=== PATIENT | male | born 1935 | race Caucasian/White ===

== ENCOUNTER → 2017-01-01 | Outpatient (CLI) | payer BC ==
[2017-01-01 12:56] LABS: ALT/SGPT 23 U/L (12-78); AST/SGOT 15 U/L (15-37); BLOOD UREA NITROGEN 21 mg/dl (7-18); BUN/CREATININE RATIO 17.8 (10-20); CALCIUM 9.2 mg/dl (8.5-10.1); CARBON DIOXIDE 30 mmol/L (21-32); CHLORIDE 107 mmol/L (98-107); CHOLESTEROL 127 mg/dl (0-200); GLUCOSE 120 mg/dl (70-99); POTASSIUM 3.8 mmol/L (3.5-5.1); SODIUM 143 mmol/L (136-145); TRIGLYCERIDES 153 mg/dl (0-150); VERY LOW DENSITY LIPOPROT CALC 31 mg/dl
[2017-01-01 12:58] LABS: BASO % 0.6 %; BASO ABS # 0.03 K/uL (0-0.2); COMPLETE YES; HEMATOCRIT 39.1 % (42-52); IG% 0.2 %; LYMPH ABS # 1.51 K/uL (1.2-3.4); MEAN CELL VOLUME 88.9 fL (80-100); MEAN CORPUSCULAR HEMOGLOBIN 31.4 pg (25-34); MEAN CORPUSCULAR HGB CONC 35.3 g/dl (32-36); MEAN PLATELET VOLUME 11.4 fL (7.4-10.4); NEUT % 58.2 %; PLATELET COUNT 160 K/uL (130-400)
[2017-01-01 13:05] LABS: ALKALINE PHOSPHATASE 51 U/L (45-117); CHOLESTEROL/HDL RATIO 2.8; HDL CHOLESTEROL 45 mg/dl; LDL CHOLESTEROL CALCULATED 51 mg/dl
== END | disposition home or self-care (01) ==
LOC: C.LABMFLN 07:32
PROVIDERS: ATTEND Family Medicine
DX: R42 Dizziness and giddiness (principal); E78.5 Hyperlipidemia, unspecified; E03.9 Hypothyroidism, unspecified

== ENCOUNTER → 2017-01-14 | Outpatient (CLI) | payer BC ==
[~2017-01-14] MED LIST: GADAVIST IV PRN
--- NOTE | 2017-01-14 15:44 | DIAGNOSTIC IMAGING REPORT ---
MR ANGIOGRAM OF THE NECK COMBO CLINICAL HISTORY: Diplopia. Vertigo. COMPARISON STUDY: No priors. TECHNIQUE: Axial 2-D [id number] MR angiography of the neck is performed. Subsequently, following the IV administration of 8 cc of Gadavist coronal MR angiogram of the neck was performed to corroborate the findings. 3-D reformats are created and assessed. All measurements were calculated based on NASCET criteria. FINDINGS: Visualized portions of the thoracic aorta are normal in caliber. The thoracic aorta demonstrates standard 3-vessel arch anatomy. The right common carotid artery is widely patent. There is approximately 50% stenosis at the origin of the right internal carotid artery. The remainder of the right internal carotid artery is widely patent, as is the right external carotid artery. The left common carotid artery is widely patent, as are the left internal and external carotid arteries. The subclavian arteries are widely patent bilaterally. The vertebral arteries are widely patent bilaterally noting left-sided dominance. The partially visualized intracranial vessels are clear. IMPRESSION: 1. There is approximately 50% stenosis at the origin of the right internal carotid artery. 2. Otherwise unremarkable MR angiogram the neck. See above. Electronically signed by: Unruly Galarza M.D. 01/14/2017 3:42 PM Dictated Date/Time: 01/14/2017 3:38 PM
--- NOTE | 2017-01-14 16:02 | DIAGNOSTIC IMAGING REPORT ---
Brain MRI WITH AND WITHOUT CONTRAST HISTORY: R42 [id number] Vertebrobasilar [id number] TECHNIQUE: Multiplanar multisequence MRI of the brain was performed both before and after the intravenous administration of contrast. COMPARISON STUDY: None. FINDINGS: There is no mass, hematoma, midline shift, or acute infarct. The paranasal sinuses are clear. The mastoid air cells are clear. The ventricles and sulci demonstrate mild age-related involutional changes. Scattered foci of T2 hyperintensity seen within the periventricular and subcortical white matter are nonspecific but suggestive of mild microvascular ischemic changes. The major vascular flow voids at the skull base are well-maintained. No abnormal enhancement. IMPRESSION: No acute intracranial abnormality. Scattered foci of T2 hyperintensity seen within the periventricular and subcortical white matter are nonspecific but favor microvascular ischemic change. Electronically signed by: Ralph Worthy M.D. 01/14/2017 4:00 PM Dictated Date/Time: 01/14/2017 3:54 PM
== END | disposition home or self-care (01) ==
LOC: C.MRI 13:00
PROVIDERS: ATTEND Family Medicine
DX: G45.0 Vertebro-basilar artery syndrome (principal); R42 Dizziness and giddiness

== ENCOUNTER → 2018-02-24 | Outpatient (CLI) | payer BC ==
[2018-02-24 13:53] LABS: URIC ACID 5.8 mg/dl (2.6-7.2)
== END | disposition home or self-care (01) ==
LOC: C.LABMFLN 10:16
PROVIDERS: ATTEND Family Medicine
DX: E03.9 Hypothyroidism, unspecified (principal); M10.9 Gout, unspecified

== ENCOUNTER 2023-07-22 05:32 | Observation (INO) ==
--- NOTE | 2023-07-02 12:00 | PAT Medication Instructions ---
Medication Instructions Date of Service July 02, 2023 Home Medications Medication Instructions Recorded meclizine 12.5 mg tablet 12.5 mg PO TID PRN dizziness #90 06/14/19 tabs terazosin 2 mg capsule 2 mg PO BID #180 caps 02/01/23 Medication List: aspirin 81 mg tablet,delayed release 81 mg PO QAM meclizine 12.5 mg tablet 12.5 mg PO TID PRN dizziness omega 4-drn-vzw-fish oil 1,200 mg (144 mg-216 mg) capsule 1 cap PO BID finasteride 5 mg tablet 5 mg PO PM terazosin 2 mg capsule 2 mg PO BID collagen 1 dose PO QAM omeprazole 20 mg capsule,delayed release 20 mg PO DAILY PRN Heartburn allopurinol 100 mg tablet 100 mg PO QAM atorvastatin 40 mg tablet 40 mg PO QAM cholecalciferol (vitamin D3) 50 mcg (2,000 unit) capsule 50 mcg PO QAM docusate sodium 100 mg capsule (Colace) 300 mg PO QAM levothyroxine 50 mcg tablet 50 mcg PO QAM ropinirole 0.25 mg tablet 0.25 mg PO PM triamterene 75 mg-hydrochlorothiazide 50 mg tablet 0.25 tab PO QAM MEDICATION INSTRUCTIONS: ASK your prescriber and surgeon aspirin 81 mg tablet,delayed release 81 mg PO QAM STOP taking 2 weeks before surgery omega 5-zix-dgt-fish oil 1,200 mg (144 mg-216 mg) capsule 1 cap PO BID DO NOT take the morning of surgery cholecalciferol (vitamin D3) 50 mcg (2,000 unit) capsule 50 mcg PO QAM triamterene 75 mg-hydrochlorothiazide 50 mg tablet 0.25 tab PO QAM docusate sodium 100 mg capsule (Colace) 300 mg PO QAM collagen 1 dose PO QAM Take morning of surgery With a small sip of water, OTHERWISE NOTHING TO EAT OR DRINK AFTER MIDNIGHT: omeprazole 20 mg capsule,delayed release 20 mg PO DAILY PRN Heartburn allopurinol 100 mg tablet 100 mg PO QAM atorvastatin 40 mg tablet 40 mg PO QAM levothyroxine 50 mcg tablet 50 mcg PO QAM meclizine 12.5 mg tablet 12.5 mg PO TID PRN dizziness terazosin 2 mg capsule 2 mg PO BID Take evening before surgery finasteride 5 mg tablet 5 mg PO PM meclizine 12.5 mg tablet 12.5 mg PO TID PRN dizziness terazosin 2 mg capsule 2 mg PO BID ropinirole 0.25 mg tablet 0.25 mg PO PM Other Notes If you have any questions please call us at [phone] or [phone] or [phone] or [phone]
--- NOTE | 2023-07-05 08:52 | Anesthesiology Consultation ---
Date of Service July 05, 2023 Assessment & Plan (1) Pre-op evaluation: - awaiting [place] PCP response to workload note for final clearance. - PCP pre-operative evaluation 06/21/23 [place]: "...his ekg was done and was normal. he is to have his cxr for pre op. his lab work was ordered for surgery. he is to keep his appts with his other physicians. he will be cleared when his lab work and cxr are done..." - Outpatient joint assessment: Patient is currently scheduled for inpatient pathway. If re-evaluated and patient/surgeon requests outpatient pathway, patient is not recommended candidate for outpatient joint program from anesthesia standpoint. Chart Review Chart Review: Pending: Refer to Additional Notes / Consult section and Patient seen in Pre Admission Testing Teaching & Discussion Pre-Anesthesia Teaching/Discussion Notes: Instructed NPO after midnight before surgery, except medications with 15 cc of water. Medication instructions provided according to the PAT guidelines. History Surgery Operation Date: 07/22/23 09:55 Proposed Procedures p Left Total Knee Arthroplasty - Chance Johns MD Height/Weight Height: 6 ft Weight: 82.4 kg Allergies Allergy/AdvReac Type Severity Reaction Status Date / Time methotrexate Allergy Intermediate Rash Verified 06/28/23 09:04 HARISH Inhibitors Allergy Mild Cough Verified 06/28/23 09:04 Medications Home Medications Medication Instructions Recorded Confirmed Last Taken aspirin 81 mg tablet,delayed 81 mg PO QAM #30 tabs 06/14/19 06/28/23 Unknown release meclizine 12.5 mg tablet 12.5 mg PO TID PRN dizziness #90 06/14/19 06/28/23 Unknown tabs omega 7-sfd-eks-fish oil 1,200 mg 1 cap PO BID 06/14/19 06/28/23 Unknown (144 mg-216 mg) capsule finasteride 5 mg tablet 5 mg PO PM 08/16/22 06/28/23 Unknown terazosin 2 mg capsule 2 mg PO BID #180 caps 02/01/23 06/28/23 Unknown collagen 1 dose PO QAM 02/15/23 06/28/23 Unknown omeprazole 20 mg capsule,delayed 20 mg PO DAILY PRN Heartburn 06/21/23 06/28/23 Unknown release allopurinol 100 mg tablet 100 mg PO QAM 06/28/23 06/28/23 Unknown atorvastatin 40 mg tablet 40 mg PO QAM 06/28/23 06/28/23 Unknown cholecalciferol (vitamin D3) 50 50 mcg PO QAM 06/28/23 06/28/23 Unknown mcg (2,000 unit) capsule docusate sodium 100 mg capsule 300 mg PO QAM 06/28/23 06/28/23 Unknown (Colace) levothyroxine 50 mcg tablet 50 mcg PO QAM 06/28/23 06/28/23 Unknown ropinirole 0.25 mg tablet 0.25 mg PO PM 06/28/23 06/28/23 Unknown triamterene 75 0.25 tab PO QAM 06/28/23 06/28/23 Unknown mg-hydrochlorothiazide 50 mg tablet melatonin 5 mg tablet 5 mg PO HS 07/05/23 07/05/23 Unknown Past Medical History Medical History (Updated 07/05/23 @ 08:57 by Charline Manley PA-C) Allergic rhinitis Diverticular disease Remote diverticulitis (?2020) Elevated PSA GERD (gastroesophageal reflux disease) controlled, stable per pt Gout last episode > 1 month ago Gynecomastia H/O adenomatous polyp of colon History of COVID-2021 > not hospitalized Hyperlipidemia Hypertension controlled, stable per pt Hypothyroidism Lump of breast, right Benign per pt-right chest wall tenderness, PCP aware and monitoring, denies change or worsening Migraine Hx 20 years ago Restless leg syndrome Rheumatoid arthritis Stenosis of right carotid artery without infarction Carotid duplex (12/25/21): B/L ICA stenosis <50% stenosis; denies dizziness, lightheadedness, presyncope, visual changes Stomach ulcer Hx, "resolved" Urinary frequency Nighttime, seeing PCP at present for this per pt Vertigo controlled, stable per pt, denies needing meclizine > 1 yr ago Patient denies h/o stroke, seizures, heart attack, heart failure, DM, DVTs or blood transfusions. Exercise / Class Metabolic Activity II 4-5 Yardwork/Stairs/Walk up hill (denies chest discomfort or shortness of breath with 1 FOS) Past Family History Family History Aunt Ovarian cancer Uncle Brain cancer Father Myocardial infarction Stroke Denies family history of Prostate cancer Breast cancer Colorectal cancer Past Surgical History Surgical History (Updated 07/03/23 @ 11:53 by Leticia Perkins) H/O colonoscopy History of subtotal thyroidectomy History of tooth extraction S/P appendectomy S/P carpal tunnel release right S/P inguinal hernia repair Past Anesthesia History No Hx of Anesthesia Complications and No Family Hx of Anesthesia Complications History of PONV No Hx of PONV and Hx of Motion Sickness Social History Smoking Status: Former smoker tobacco type: cigarettes and pipe Do You Dip or Chew Tobacco: No Smoking End Date: 50 yrs ago Hx Alcohol Use: Yes Alcohol type: beer and wine alcohol intake frequency: a few times a month Hx Substance Use: No substance use type: does not use Review of Systems Snoring, denies witnessed apneas. Patient denies chest pain, shortness of breath, dyspnea on exertion, fever, chills, cough, wheezing, or palpitations. Physical Exam Vital Signs Vitals BP 129/77 P 68 TEMP 98.1 SP02 97% on RA RESP 17 Physical Patient resting comfortably in chair in no acute distress, alert and oriented, responding appropriately throughout visit Full cervical extension range of motion without pain TMD 3.5 finger breadths Mallampati Score 2 Dentition: partial upper plate, denies chipped or loose teeth, caps/crowns, implants or bridges Lungs: normal respiratory effort. Good air movement, clear throughout to auscultation, no adventitious breath sounds Cardiac: regular rate and rhythm, no murmurs noted Carotid arteries: negative bruit bilat Lab Results Anesthesia Preop Results Results Anesthesia Widget: WBC 4.94 K/ul (4.8-10.8) 06/27/23 Hgb 13.4 g/dl (14.0-18.0) L 06/27/23 Hct 38.6 % (42.0-52.0) L 06/27/23 Plt 177 K/uL (130-400) 06/27/23 Na 137 mmol/L (136-145) 06/27/23 K 3.8 mmol/L (3.5-5.1) 06/27/23 Cl 102 mmol/L (98-107) 06/27/23 CO2 29 mmol/L (21-32) 06/27/23 BUN 21 mg/dl (6-23) 06/27/23 Creat 1.20 mg/dl (0.6-1.4) 06/27/23 Glucose Level 141 mg/dl (70-99(Fasting)) H 06/27/23 PT 11.1 Seconds (9.0-12.0) 06/27/23 PTT 28.2 Seconds (21.0-31.0) 06/27/23 INR 1.0 (0.9-1.1) 06/27/23 TSH 4.044 uIu/ml (0.300-4.500) 06/27/23 Urine Color Yellow 06/27/23 Urine Appearance Clear (Clear) 06/27/23 Urine pH 6.5 (4.5-7.5) 06/27/23 Urine Specific [place] 1.017 (1.000-1.030) 06/27/23 Urine Protein Negative (Negative) 06/27/23 Urine Glucose (UA) Negative (Negative) 06/27/23 Urine Ketones Negative (Negative) 06/27/23 Urine Blood Negative (Negative) 06/27/23 Urine Nitrite Negative (Negative) 06/27/23 Urine Bilirubin Negative (Negative) 06/27/23 Urine Urobilinogen Negative (Negative) 06/27/23 Urine Leukocyte Esterase Negative (Negative) 06/27/23 Blood Type A Negative 07/05/23 Antibody Screen NEGATIVE 07/05/23 Testing Electrocardiogram Date: 06/21/23 Sinus rhythm, rate 73 bpm Chest X-Ray Date: 06/21/23 No evidence of acute cardiopulmonary disease Cervical Spine Date: 07/05/23 x-ray Degenerative changes without evidence of acute abnormality Other Testing Carotid doppler 12/25/21 < 50% stenosis ICAs bilat
--- NOTE | 2023-07-21 19:01 | History & Physical Report ---
Date of Service July 21, 2023 Assessment & Plan (1) Primary osteoarthritis of left knee: Plan: Treatment options discussed with the patient. He has failed conservative measures and would like to proceed with surgical invention. Risks, benefits and alternatives to surgery including but not limited to infection, DVT, pain, stiffness, need for revision surgery, damage to blood vessels, damage to nerves, PE, , were discussed with the patient and they wish to proceed. Plan for left total knee arthroplasty scheduled for [facility] on July [address] Johns. Plan on aspirin 81 mg twice daily for 1 month postop for DVT prophylaxis. Plan on inpatient rehab postoperatively. All questions answered. Patient follow-up postop. History of Present Illness Chief Complaint: Left knee pain Primary Care Provider: Maksim Vee DO 87-year-old male with past medical history significant for hypertension, high cholesterol diverticular disease, hypothyroidism, migraine, RA, who presents with ongoing left knee pain. He has failed conservative measures including steroid injections. He has pain interfering with his daily activities and would like to proceed with surgical invention. Patient denies headaches, sweats, fevers, chills, double vision, blurred vision, cough, sore throat, dysphagia, chest pain, sob, wheezing, n/v/d/c, numbness, tingling, fatigue, urinary symptoms, mood disorders. ROS positive for left knee pain and stiffness. Allergies Allergy/AdvReac Type Severity Reaction Status Date / Time methotrexate Allergy Intermediate Rash Verified 06/28/23 09:04 HARISH Inhibitors Allergy Mild Cough Verified 06/28/23 09:04 Home Medications Medication Instructions Recorded Confirmed Type aspirin 81 mg tablet,delayed 81 mg PO QAM #30 tabs 06/14/19 06/28/23 History release meclizine 12.5 mg tablet 12.5 mg PO TID PRN dizziness #90 06/14/19 06/28/23 Rx tabs omega 8-lxl-kly-fish oil 1,200 mg 1 cap PO BID 06/14/19 06/28/23 History (144 mg-216 mg) capsule finasteride 5 mg tablet 5 mg PO PM 08/16/22 06/28/23 History terazosin 2 mg capsule 2 mg PO BID #180 caps 02/01/23 06/28/23 Rx collagen 1 dose PO QAM 02/15/23 06/28/23 History omeprazole 20 mg capsule,delayed 20 mg PO DAILY PRN Heartburn 06/21/23 06/28/23 History release allopurinol 100 mg tablet 100 mg PO QAM 06/28/23 06/28/23 History atorvastatin 40 mg tablet 40 mg PO QAM 06/28/23 06/28/23 History cholecalciferol (vitamin D3) 50 50 mcg PO QAM 06/28/23 06/28/23 History mcg (2,000 unit) capsule docusate sodium 100 mg capsule 300 mg PO QAM 06/28/23 06/28/23 History (Colace) levothyroxine 50 mcg tablet 50 mcg PO QAM 06/28/23 06/28/23 History ropinirole 0.25 mg tablet 0.25 mg PO PM 06/28/23 06/28/23 History triamterene 75 0.25 tab PO QAM 06/28/23 06/28/23 History mg-hydrochlorothiazide 50 mg tablet melatonin 5 mg tablet 5 mg PO HS 07/05/23 07/05/23 History Past Med/Surg History Medical History (Updated 07/21/23 @ 19:00 by Juanpablo Herbert PA-C) Allergic rhinitis Diverticular disease Remote diverticulitis (?2020) Elevated PSA GERD (gastroesophageal reflux disease) controlled, stable per pt Gout last episode > 1 month ago Gynecomastia H/O adenomatous polyp of colon History of COVID-2021 > not hospitalized Hyperlipidemia Hypertension controlled, stable per pt Hypothyroidism Lump of breast, right Benign per pt-right chest wall tenderness, PCP aware and monitoring, denies change or worsening Migraine Hx 20 years ago Restless leg syndrome Rheumatoid arthritis Stenosis of right carotid artery without infarction Carotid duplex (12/25/21): B/L ICA stenosis <50% stenosis; denies dizziness, lightheadedness, presyncope, visual changes Stomach ulcer Hx, "resolved" Urinary frequency Nighttime, seeing PCP at present for this per pt Vertigo controlled, stable per pt, denies needing meclizine > 1 yr ago Surgical History (Updated 07/03/23 @ 11:53 by Leticia Perkins) H/O colonoscopy History of subtotal thyroidectomy History of tooth extraction S/P appendectomy S/P carpal tunnel release right S/P inguinal hernia repair Family History Aunt Ovarian cancer Uncle Brain cancer Father Myocardial infarction Stroke Denies family history of Prostate cancer Breast cancer Colorectal cancer Social History Smoking Status: Former smoker Age Started Using Tobacco: 20; Age Quit Using Tobacco: 32; packs per day: 0.5; Smoking End Date: 50 yrs ago; Second Hand Exposure: No; Do You Dip or Chew Tobacco: No; Tobacco Cessation Education Requested by Patient: No Hx Alcohol Use: Yes Alcohol type: beer and wine Hx Substance Use: No Preferred Language: [place] Communication Ability: Effective Visual Impairment: Partially Limited Hearing Ability: Use of Hearing Aid Logging Contractor Required: No Beliefs That Will Affect Care: None marital status: Current Living Situation: Spouse current occupational status: retired Other Information That Helps Us Care for You: No Feels Safe at Home: Yes Safety Concerns: Feels Safe At This Time Childhood Exposure to Second-Hand Smoke: No Diet Comment: seeds/nuts caffeine: Yes (coffee/iced tea) Dental Care, Regularly: Yes Physical Activity Frequency: Daily Physical Activity Frequency Comment: yard work/walk dog Seatbelt Use: always Sunscreen Use: No Do you think of yourself as: straight/heterosexual Assistive Devices: Cane, Denture - Upper, Glasses and Hearing Aid - Bilateral Review of Systems All systems reviewed & are unremarkable except as noted in HPI & below Physical Exam Constitutional: well developed and well nourished; no acute distress Eyes: PERRL, conjunctivae normal, anicteric sclerae ENMT: external ear and nose normal, oropharynx normal Neck: trachea midline, no thyromegaly Respiratory: normal respiratory effort, lungs clear to auscultation Cardiovascular: RRR, no murmur, no edema Musculoskeletal: Left knee: Tenderness medial joint line and lateral patellar facet. Mild effusion. Moderate crepitation. Range of motion 10 to 125 degrees. Stable to valgus and varus stress test. Skin: no rashes, warm and dry Neurologic: patellar DTR's 2+ bilat, sensation intact Psychiatric: A+Ox3, euthymic affect Results & Data Diagnostic Findings Left knee radiographs demonstrate tricompartmental arthritic changes. Patient with significant joint space narrowing medial compartment. [id number] patellofemoral compartment. There is periarticular osteophytes.
[2023-07-22] MEDS ORDERED: LR 500ML BOLUS, THEN 15ML/HR IV SCH (06:00)
[2023-07-22] MEDS ORDERED: LR 60ML/HR IV SCH (06:00)
[2023-07-22] MEDS ORDERED: TRANEXAMIC ACID 1,000 MG **IV Intra-op IV SCH (06:00)
[2023-07-22] MEDS ORDERED: dexAMETHasone 4 MG TAB PO SCH (06:00)
[2023-07-22] MEDS ORDERED: METOCLOPRAMIDE HCL 10 MG TABLET PO SCH (06:00)
[2023-07-22] MEDS ORDERED: CeleBREX 200 MG CAP PO SCH ×2 (06:00→21:00)
[2023-07-22] MEDS ORDERED: TRANEXAMIC ACID 1,000 MG **IV Pre-op IV SCH (06:00)
[2023-07-22] MEDS ORDERED: ceFAZolin 2000MG 2,000 MG/15 ML SYR IV SCH (06:00)
[2023-07-22] MEDS ORDERED: GABAPENTIN 300 MG CAP PO SCH (06:00)
[2023-07-22] MEDS ORDERED: ACETAMINOPHEN 500 MG TAB PO SCH (06:00)
[2023-07-22] MEDS ORDERED: FAMOTIDINE 20 MG TAB PO SCH (06:00)
[2023-07-22] MEDS ORDERED: ROPIVACAINE 0.5% HCL/PF 150 MG, BUPIVACAINE 0.75% MPF 20 ML, EPINEPHrine 30MG/30ML (OR ... INSTIL SCH (06:00)
[2023-07-22] MEDS ORDERED: fentaNYL citrate PF 100 MCG/2 ML VIAL IV PRN (06:28)
[2023-07-22] MEDS ORDERED: ePHEDrine sulfate 50 MG/ML AMP IV PRN (06:28)
[2023-07-22] MEDS ORDERED: ATROPINE SULFATE 0.1 MG/ML 10ML SYR IV PRN (06:28)
[2023-07-22] MEDS ORDERED: ONDANSETRON INJ 2 MG/ML 2 ML VIAL IV PRN ×2 (06:28→12:09)
[2023-07-22] MEDS ORDERED: BUPIVACAINE 0.5 % 5 MG/1 ML PF 10ML VIAL ONE (06:35)
[2023-07-22] MEDS ORDERED: BUPIVACAINE 0.25% PF 30 ML VIAL ONE (06:36)
[2023-07-22] MEDS ORDERED: PROPOFOL IV EMULSION 10 MG/ML 20 ML VIAL IV ONE ×3 (06:47→09:10)
[2023-07-22] MEDS ORDERED: MIDAZOLAM HCL 1 MG/ML 2ML VIAL ONE (06:47)
[2023-07-22] MEDS ORDERED: LIDOCAINE 2% 2 ML VIAL/AMP(20MG/ML) INFIL ONE (06:47)
[2023-07-22] MEDS ORDERED: fentaNYL citrate PF 100 MCG/2 ML VIAL ONE (06:48)
[2023-07-22] MEDS ORDERED: ORTHO JOINT ANESTHETIC ONE (06:56)
--- NOTE | 2023-07-22 07:14 | History & Physical Bridge Note ---
Date of Service July 22, 2023 History & Physical Bridge Note I have examined the patient, reviewed the History & Physical and in the interval since the performance of the History & Physical I have noted the following changes of clinical significance: no changes noted
[2023-07-22] MEDS ORDERED: ONDANSETRON INJ 2 MG/ML 2 ML VIAL ONE (07:44)
[2023-07-22] MEDS ORDERED: DEXAMETHASONE SOD INJ 4 MG/ML VIAL ONE (07:44)
--- NOTE | 2023-07-22 09:09 | Operative Report ---
Post Operative Report Pre & Post Diagnosis Operation Date: 07/22/23 07:15 Pre-Op Diagnosis: Primary osteoarthritis of left knee Post-Op Diagnosis: Primary osteoarthritis of left knee I identified the patient and participated in the time-out.: Yes Procedure Operation Date: 07/22/23 07:15 Actual Procedures p Left Total Knee Arthroplasty(Left), Lela Acticoat superficial wound VAC- Chance Johns MD Surgeon Chance Johns MD Fitter Hand Juanpablo SINGH Estimated Blood Loss 5 Findings Consistent with Post-Op Diagnosis Specimens bone cuts Drains 2 Hemovac Anesthesia Type MAC Spinal Regional Complications none Disposition Disposition: Recovery Room Indications 87-year-old male with chronic osteoarthritis left knee failed conservative management. Patient is [id number] patellofemoral joint and close to gkjr-[id number] medial compartment. Description of Procedure Patient was taken to the operating room placed supine on the operating table and anesthetized under Spinal MAC regional block anesthesia. Exam under anesthesia demonstrated tall individual with thin leg and no effusion no instability full range of motion substantial crepitation with range of motion. A pneumatic tourniquet was placed about the thigh of the Left lower extremity. The left lower extremity was prepped and draped in usual sterile fashion. The leg was elevated exsanguinated with an Esmarch bandage and the pneumatic tourniquet was raised to 275mm mercury. An anterior incision was made across the left knee. The skin was incised longitudinally subcutaneous flaps were elevated and an incision was made through the medial retinaculum extending up into the mid third of the quadriceps tendon and extended down to the medial tibial tubercle. Intra-articular findings demonstrated ofux-jo-scoa patellofemoral joint with eburnated bone grade 4 medial femoral condyle and grade 3 medial tibial plateau arthritis more anterior medial arthritic pattern medially. The knee was exposed by excising the infrapatellar fat pad, excising the menisci and cruciate ligaments. Any inflamed synovial tissue was resected. The fat pad over the anterior femur was resected for placement of the component in that area. The lateral synovial bands were release. The femur was exposed. The custom femoral cutting block was pinned in position. The distal femoral cutting block was applied. The distal femoral cut was made with the oscillating saw. The size 10, 4-in-1 cutting block was placed. The anterior and posterior chamfer cuts were made. The knee was extended and a subperiosteal peel lateral release was performed around the patella. The patella width was measured and width was reproduced using freehand cut technique. The 38 millimeter symmetrical patella was used. 3 drill holes are made for the pegs. The tibia was exposed. A custom tibial cutting block was positioned and drill holes were made for the cutting guide. Cutting guide was placed and the proximal cut was made with the oscillating saw. All osteophytes were resected. The lamina product promoter retail pet was used to assess ligamentous balance and the ligaments were balanced in extension and flexion. no releases were required. The tibia was reexposed and measured for a size F tibial component. This was externally rotated in line with the tibial tubercle and the fixation pins were drilled. The proximal tibia was fashioned with the drill and punch. The size10 CR femoral trial was inserted. The trial MC inserts were used. The 10 mm insert gave balanced ligaments through full range of motion. The patella tracked centrally. the trials were removed. The orthomix anesthetic cocktail was injected per protocol. The knee was then copiously irrigated with pulsatile lavage saline solution. The final components were cemented with Refobacin bone cement. The final components were [employer] persona left 10 standard CR femoral component, left F tibial component, left 10 mm MC tibial polyethylene and a 38 mm symmetrical patella. After the cement cured with the knee in full extension the Betadine soak was used per protocol. The knee joint was copiously irrigated with pulsatile lavage saline solution . 2 drains were brought out laterally and connected to a Hemovac. The quadriceps tendon and medial retinaculum were closed with interrupted akaxsb-[id number] #1 Vicryl sutures. The knee was taken through a full range of motion which was 0 through 140 degrees and the repair was secure. The subcutaneous tissues were closed with 2-0 Vicryl sutures and skin was closed with Tylor.A Lela and Acticoat superficial wound VACwas applied and the patient tolerated the procedure well.Juanpablo SINGH my physician financial services assistant participated as group fitness assistant department head and was an integral part in all aspects of the procedure,he assisted in soft tissue retraction, instrument management ,leg positioning, the closure including application of superficial wound VAC and will participate in the postoperative care of the patient. I attest to the content of the Intraoperative Record and any orders documented therein. Any exceptions are noted below.
--- NOTE | 2023-07-22 10:09 | XRay Report ---
XR knee LT 1 or 2V routine CLINICAL HISTORY: Postoperative evaluation. COMPARISON: None FINDINGS: Alignment of the total left knee arthroplasty is anatomic. There is no periprosthetic frac ture. There are skin bry. No unexpected radiopaque foreign bodies are present. Surgical drain is in place. IMPRESSION: Expected findings following total left knee arthroplasty. ACT 112: Negative or not required by law. Electronically signed by: Cade Alford M.D. 07/22/2023 10:08 AM
--- NOTE | 2023-07-22 10:48 | Anesthesiology Progress Note ---
Date of Service July 22, 2023 Anesthesia Post Procedure Vital Signs Vital Signs: Temp Pulse Pulse Resp BP BP Pulse Ox 07/22/23 10:30 71 14 119/69 92 07/22/23 10:20 75 18 102/67 94 07/22/23 10:10 36.3 C L 67 12 118/74 93 07/22/23 10:00 73 14 128/71 93 07/22/23 09:50 72 10 L 123/71 97 07/22/23 09:43 36.2 C L 78 12 123/73 96 07/22/23 05:57 36.7 C 70 20 179/87 H 96 O2 Del Method O2 Flow Rate 07/22/23 10:30 Room Air 07/22/23 10:20 Room Air 07/22/23 10:10 Room Air 07/22/23 10:00 Room Air 07/22/23 09:50 Oxymask 4 07/22/23 09:43 Oxymask 6 07/22/23 05:57 Room Air Pain Intensity Left Knee: Pain Intensity: 5 Right Knee: Pain Intensity: 5 Transfer of Care Handoff Completed per policy Notes Mental Status: alert / awake / arousable Patient Amnestic to Procedure: Yes Nausea / Vomiting: adequately controlled Pain: adequately controlled Airway Patency, RR, SpO2: stable & adequate BP & HR: stable & adequate Hydration State: stable & adequate Neuraxial Anesthesia: was administered and sensory block is resolving Anesthetic Complications: no major complications apparent and Pt Satisfied with anesthetic care
[2023-07-22] MEDS ORDERED: MECLIZINE 12.5 MG TAB PO PRN (12:09)
[2023-07-22] MEDS ORDERED: bisacodyL 10 MG SUPP PR PRN (12:09)
[2023-07-22] MEDS ORDERED: HYDROmorphone INJ 0.5 MG/0.5 ML SYR IV PRN (12:09)
[2023-07-22] MEDS ORDERED: NALOXONE HCL 0.4 MG/1 ML VIAL/CARP IV PRN (12:09)
[2023-07-22] MEDS ORDERED: oxyCODONE HCL IR 5 MG TAB (IMMEDIATE RELEASE) PO PRN (12:09)
[2023-07-22] MEDS ORDERED: METOCLOPRAMIDE HCL INJ 5 MG/ML 2 ML VIAL IV PRN (12:09)
[2023-07-22] MEDS ORDERED: MAGNESIUM HYDROXIDE SUSP 30 ML UDC PO PRN (12:09)
[2023-07-22] MEDS ORDERED: PANTOprazole 40 MG TAB PO PRN (12:34)
[2023-07-22] MEDS: SODIUM CHLORIDE 0.9% 1,000 ML IV SCH (12:54)
[2023-07-22] MEDS: ACETAMINOPHEN 500 MG TAB PO SCH ×2 (13:22→21:15)
[2023-07-22] MEDS: ceFAZolin 2000MG 2,000 MG/15 ML SYR IV SCH (15:07)
[2023-07-22] MEDS: rOPINIRole HCL 0.25 MG TABLET PO SCH (21:14)
[2023-07-22] MEDS: TERAZOSIN HCL 1 MG CAP PO SCH (21:15)
[2023-07-22] MEDS: MELATONIN 3 MG TAB PO SCH (21:15)
[2023-07-22] MEDS: SENNA 8.6 MG TAB PO SCH (21:16)
[2023-07-22] MEDS: ASPIRIN 81 MG ECTAB PO SCH (21:16)
[2023-07-22] MEDS: FINASTERIDE 5 MG TAB PO SCH (21:16)
[2023-07-23] MEDS: SODIUM CHLORIDE 0.9% 1,000 ML IV SCH (00:26)
[2023-07-23] MEDS: ceFAZolin 2000MG 2,000 MG/15 ML SYR IV SCH (00:29)
[2023-07-23] MEDS ORDERED: POTASSIUM CHLORIDE CRTAB 20 MEQ TABCR PO ONE (00:43)
[2023-07-23] MEDS ORDERED: CYCLOBENZAPRINE HCL 5 MG TAB PO PRN ×2 (00:44→16:31)
[2023-07-23] MEDS ORDERED: SODIUM CHLORIDE 0.9% 1,000 ML IV SCH (00:45)
[2023-07-23] MEDS: ACETAMINOPHEN 500 MG TAB PO SCH ×3 (05:39→21:57)
[2023-07-23] MEDS: LEVOTHYROXINE SODIUM 50 MCG TABLET PO SCH (05:39)
[2023-07-23 06:42] LABS: Hematocrit (blood only) 34.6 % (42.0-52.0); Hemoglobin 12.4 g/dl (14.0-18.0); Mean Corpuscular Hemoglobin 31.9 pg (25.0-34.0); Mean Corpuscular Hgb Conc 35.8 g/dL (32.0-36.0); Mean Corpuscular Volume 88.9 fL (80.0-100.0); Mean Platelet Volume 10.7 fL (9.4-12.4); Platelet Count 174 K/uL (130-400); RDW Coefficient of Variation 12.2 % (11.5-14.5); RDW Standard Deviation 39.6 fL (36.4-46.3); Red Blood Count 3.89 M/uL (4.70-6.10); White Blood Count 13.85 K/ul (4.8-10.8)
[2023-07-23 07:06] LABS: BUN Creatinine Ratio 28.5 (10-20); Calcium 9.3 mg/dl (8.6-10.3); Creatinine Clr Calc Pharmacy 41.2 ml/min; Potassium 3.7 mmol/L (3.5-5.1)
[2023-07-23] MEDS: MULTIVITAMIN TAB PO SCH (08:04)
[2023-07-23] MEDS: DOCUSATE SODIUM 100 MG CAP PO SCH (08:04)
[2023-07-23] MEDS: CHOLECALCIFEROL 1,000 UNITS 25 MCG TAB PO SCH (08:04)
[2023-07-23] MEDS: ATORVASTATIN 40 MG TAB PO SCH (08:04)
[2023-07-23] MEDS: allopurinoL 100 MG TAB PO SCH (08:04)
[2023-07-23] MEDS: TERAZOSIN HCL 1 MG CAP PO SCH ×2 (08:04→20:39)
[2023-07-23] MEDS: TRIAMTERENE/HCTZ 37.5/25MG TAB PO SCH (08:04)
[2023-07-23] MEDS: ASPIRIN 81 MG ECTAB PO SCH ×2 (08:05→20:40)
--- NOTE | 2023-07-23 08:19 | Orthopedic Progress Note ---
Date of Service July 23, 2023 Assessment & Plan (1) Primary osteoarthritis of left knee: Plan: Postop day #1 left total knee arthroplasty -PT/OT -Pain management as written -DVT prophylaxis: SCDs, teds, aspirin 81 mg twice daily -AM labs: Hemoglobin 12.4 from 13.4 preop acute blood loss anemia due to surgical loss versus dilutional. Mild leukocytosis likely due to surgical stress versus perioperative steroids. Patient is asymptomatic. Mildly elevated creatinine at 1.44 from 1.2 on preop labs. We will hold Celebrex for now. -Discharge planning: Plan on discharge to [facility] pending insurance authorization and PT/OT evals. Patient likely will require 3 midnight stay due to his insurance. Admission and Anticipated Discharge Date Admission Date: July 22, 2023 Subjective Patient is postop day 1 left knee. He is feeling well this morning. Not currently having any pain. Overnight he was having some thigh pain and some spasms likely due to the tourniquet use during surgery. This is improved. No other complaints. Denies chest pain, shortness of breath, nausea/vomiting/diarrhea, headaches or dizziness. Review of Systems Review of Systems: All systems reviewed & are unremarkable except as noted in Subjective Physical Exam Physical Exam: Left knee: Dressing is clean, dry, intact. Hemovac on suction. Toes are mobile with good dorsiflexion. No calf tenderness. Able to do a straight leg raise. Distally neurovascular status and sensation is grossly intact. Constitutional: WD/WN, vitals as above Results & Data Vital Signs (Past 12 Hours) Vital Signs Temp Pulse Pulse Resp BP Pulse Ox O2 Del Method 07/23/23 08:00 36.4 C L 64 16 159/78 H 96 Room Air 07/23/23 03:37 36.6 C 60 18 151/77 H 96 Room Air 07/22/23 23:25 36.7 C 62 18 150/72 H 97 Room Air Laboratory Results Lab Results 07/23/23 07/23/23 Range/Units 05:47 05:47 WBC 13.85 H (4.8-10.8) K/ul RBC 3.89 L (4.70-6.10) M/uL Hgb 12.4 L (14.0-18.0) g/dl Hct 34.6 L (42.0-52.0) % MCV 88.9 (80.0-100.0) fL MCH 31.9 (25.0-34.0) pg MCHC 35.8 (32.0-36.0) g/dL RDW Std Deviation 39.6 (36.4-46.3) fL RDW Coeff of [place] 12.2 (11.5-14.5) % Plt Count 174 (130-400) K/uL MPV 10.7 (9.4-12.4) fL Sodium 138 (136-145) mmol/L Potassium 3.7 (3.5-5.1) mmol/L Chloride 106 (98-107) mmol/L Carbon Dioxide 24 (21-32) mmol/L Anion Gap 8 (3-11) BUN 41 H (6-23) mg/dl Creatinine 1.44 H (0.6-1.4) mg/dl Est Cr Clr Drug Dosing 41.2 ml/min Est GFR ( Amer) 51.0 ml/min Est GFR (Non-Af Amer) 44.0 ml/min BUN/Creatinine Ratio 28.5 H (10-20) Glucose 115 H (70-99(Fasting)) mg/dl Calcium 9.3 (8.6-10.3) mg/dl
[2023-07-23] MEDS: MELATONIN 3 MG TAB PO SCH (20:40)
[2023-07-23] MEDS: SENNA 8.6 MG TAB PO SCH (20:40)
[2023-07-23] MEDS: rOPINIRole HCL 0.25 MG TABLET PO SCH (20:40)
[2023-07-23] MEDS: FINASTERIDE 5 MG TAB PO SCH (20:40)
[2023-07-24] MEDS: ACETAMINOPHEN 500 MG TAB PO SCH (05:37)
[2023-07-24] MEDS: LEVOTHYROXINE SODIUM 50 MCG TABLET PO SCH (05:37)
--- NOTE | 2023-07-24 07:29 | Orthopedic Progress Note ---
Date of Service July 24, 2023 Assessment & Plan (1) Primary osteoarthritis of left knee: Plan: Postop day #2 left total knee arthroplasty -PT/OT -Pain management as written -DVT prophylaxis: SCDs, teds, aspirin 81 mg twice daily -Discharge planning: Plan on discharge to [facility]. Plan on discharge today Admission and Anticipated Discharge Date Admission Date: July 22, 2023 Subjective Patient is postop day 2 left knee. He is feeling well this morning. Minimal pain. No other complaints. Denies chest pain, shortness of breath, nausea/vomiting/diarrhea, headaches or dizziness. Review of Systems Review of Systems: All systems reviewed & are unremarkable except as noted in Subjective Physical Exam Physical Exam: Left knee: Dressing is clean, dry, intact. Hemovac on suction. Toes are mobile with good dorsiflexion. No calf tenderness. Able to do a straight leg raise. Distally neurovascular status and sensation is grossly intact. Results & Data Vital Signs (Past 12 Hours) Vital Signs Temp Pulse Resp BP Pulse Ox O2 Del Method 07/23/23 23:16 36.8 C 62 18 167/83 H 94 Room Air
[2023-07-24] MEDS: DOCUSATE SODIUM 100 MG CAP PO SCH (08:20)
[2023-07-24] MEDS: allopurinoL 100 MG TAB PO SCH (08:20)
[2023-07-24] MEDS: TERAZOSIN HCL 1 MG CAP PO SCH (08:20)
[2023-07-24] MEDS: TRIAMTERENE/HCTZ 37.5/25MG TAB PO SCH (08:20)
[2023-07-24] MEDS: MULTIVITAMIN TAB PO SCH (08:20)
[2023-07-24] MEDS: ASPIRIN 81 MG ECTAB PO SCH (08:20)
[2023-07-24] MEDS: ATORVASTATIN 40 MG TAB PO SCH (08:21)
[2023-07-24] MEDS: CHOLECALCIFEROL 1,000 UNITS 25 MCG TAB PO SCH (08:21)
--- NOTE | 2023-07-24 12:04 | Communication Note ---
Date of Service: July 24, 2023 Mr. Reynolds is an 87-year-old with a history of hypertension hyperlipidemia hypothyroidism and rheumatoid arthritis who is postoperative day 2 from a left TKA. [facility] by the [facility]opedics team. I personally reviewed his chart including medical history, vital signs, labs, studies, Home and discharge medications. He will be taking low-dose aspirin twice a day for DVT prophylaxis and otherwise resume his home medications. I have no further recommendations, thank you for the consultation.
--- NOTE | 2023-07-25 08:21 | Discharge Summary ---
Date of Service July 25, 2023 Admission HPI Per Admitting Provider 87-year-old male with past medical history significant for hypertension, high cholesterol diverticular disease, hypothyroidism, migraine, RA, who presents with ongoing left knee pain. He has failed conservative measures including steroid injections. He has pain interfering with his daily activities and would like to proceed with surgical invention. Patient denies headaches, sweats, fevers, chills, double vision, blurred vision, cough, sore throat, dysphagia, chest pain, sob, wheezing, n/v/d/c, numbness, tingling, fatigue, urinary symptoms, mood disorders. ROS positive for left knee pain and stiffness. Admission Exam Per Admitting Provider Constitutional: well developed and well nourished; no acute distress Eyes: PERRL, conjunctivae normal, anicteric sclerae ENMT: external ear and nose normal, oropharynx normal Neck: trachea midline, no thyromegaly Respiratory: normal respiratory effort, lungs clear to auscultation Cardiovascular: RRR, no murmur, no edema Musculoskeletal: Left knee: Tenderness medial joint line and lateral patellar facet. Mild effusion. Moderate crepitation. Range of motion 10 to 125 degrees. Stable to valgus and varus stress test. Skin: no rashes, warm and dry Neurologic: patellar DTR's 2+ bilat, sensation intact Psychiatric: A+Ox3, euthymic affect Principal Diagnosis Left knee osteoarthritis Discharge Exam Left knee: Dressing is clean, dry, intact. Hemovac on suction. Toes are mobile with good dorsiflexion. No calf tenderness. Able to do a straight leg raise. Distally neurovascular status and sensation is grossly intact. Discharge Data Allergies Allergy/AdvReac Type Severity Reaction Status Date / Time methotrexate Allergy Intermediate Rash Verified 07/22/23 05:53 HARISH Inhibitors Allergy Mild Cough Verified 07/22/23 05:53 Consultations 07/18/23 11:44 Consult Hospitalist Routine Procedures Performed Operation Date: 07/22/23 07:15 Actual Procedures p Left Total Knee Arthroplasty(Left) - Chance Johns MD Ordered Studies 07/22/23 05:00 US - OR guided needle placemen Routine Hospital Course (1) Primary osteoarthritis of left knee: Postop day #2 left total knee arthroplasty -PT/OT -Pain management as written -DVT prophylaxis: SCDs, teds, aspirin 81 mg twice daily -Discharge planning: Plan on discharge to [facility]. Plan on discharge today Postop day #1 left total knee arthroplasty -PT/OT -Pain management as written -DVT prophylaxis: SCDs, teds, aspirin 81 mg twice daily -AM labs: Hemoglobin 12.4 from 13.4 preop acute blood loss anemia due to surgical loss versus dilutional. Mild leukocytosis likely due to surgical stress versus perioperative steroids. Patient is asymptomatic. Mildly elevated creatinine at 1.44 from 1.2 on preop labs. We will hold Celebrex for now. -Discharge planning: Plan on discharge to [facility] pending insurance authorization and PT/OT evals. Patient likely will require 3 midnight stay due to his insurance. Lab Results 07/23/23 07/23/23 07/23/23 Range/Units 05:47 05:47 16:15 WBC 13.85 H (4.8-10.8) K/ul RBC 3.89 L (4.70-6.10) M/uL Hgb 12.4 L (14.0-18.0) g/dl Hct 34.6 L (42.0-52.0) % MCV 88.9 (80.0-100.0) fL MCH 31.9 (25.0-34.0) pg MCHC 35.8 (32.0-36.0) g/dL RDW Std Deviation 39.6 (36.4-46.3) fL RDW Coeff of [place] 12.2 (11.5-14.5) % Plt Count 174 (130-400) K/uL MPV 10.7 (9.4-12.4) fL Sodium 138 (136-145) mmol/L Potassium 3.7 (3.5-5.1) mmol/L Chloride 106 (98-107) mmol/L Carbon Dioxide 24 (21-32) mmol/L Anion Gap 8 (3-11) BUN 41 H (6-23) mg/dl Creatinine 1.44 H (0.6-1.4) mg/dl Est Cr Clr Drug Dosing 41.2 ml/min Est GFR ( Amer) 51.0 ml/min Est GFR (Non-Af Amer) 44.0 ml/min BUN/Creatinine Ratio 28.5 H (10-20) Glucose 115 H (70-99(Fasting)) mg/dl Calcium 9.3 (8.6-10.3) mg/dl SARS-CoV-2 (PCR) NEGATIVE (Negative) Total Time Total Time Spent Total Time Spent (In Minutes): 20 Discharge Plan Discharge Items Patient Disposition: Transfer Detention Fac Reason For Visit: POST OP Discharge Diagnosis: Left knee osteoarthritis Activity: Per Instructions section Non-emergency contact: Surgeon Call non-emergency contact if: you have any medication questions, your pain is not controlled, your pain is concerning for you, you have a fever, your temperature is above 101, your wound has increased redness and your wound has increased drainage Follow-up/Referrals: Maksim Vee DO [Primary Care Provider] - Diet: Regular Addtl Attending Provider Instructions: ACTIVITY RECOMMENDATIONS: SELF CARE INSTRUCTIONS AFTER TOTAL KNEE REPLACEMENT A. You may need to continue a physical therapy program after discharge from the hospital. There are several options available to you. Your doctor will assist you in selecting the best one for you. 1. An out-patient facility 2 to 3 times a week for therapy or home therapy. 2. Continue working on all exercises taught to you in the hospital. Your goals should be to increase bending of your knee to 90 degrees and beyond and to fully straighten your knee. B. You may progress at your own pace from walking with a walker or crutches to a cane; then to no assistive devices. C. Make walking a part of your daily routine. Be up as much as comfortable with rest periods throughout the day. Rest with leg elevation is very important. Use the ice wrap frequently for the first 3-4 weeks. D. There are no restrictions on activities. You may ride in a car, shop, participate in front edger and all social activities. E. Wear the long elastic stockings (RENUKA hose) 20 hours a day for 2 weeks after surgery. They can be removed several times a day for laundering and for a bath. F. You may shower, no tub baths until cleared by your doctor. SPECIAL CARE INSTRUCTIONS: VERY IMPORTANT TO READ AND REVIEW A. There are a few signs you need to watch for after you are home. Call [facility] if you notice any of the followin. Increased severe knee pain. Some pain is expected especially when you exercise. 2. Increased swelling in your leg or knee; pain or swelling of the calf mus vanda in either lower leg. 3. Any fluid drainage from the incision. 4. Shortness of breath or chest pain. B. Please call [facility] at if you have any concerns or questions about your operation or recovery. The doctor or his nurse will return your call promptly. C. You must take antibiotics before dental work, bladder, bowel or other surgery. Your doctor will provide you with a permanent care to carry describing this precaution. IMPORTANT: * REMEMBER TO TAKE ASPIRIN, 81 MG, TWICE DAILY FOR 4 WEEKS UNLESS OTHERWISE DIRECTED. THIS IS YOUR BLOOD THINNER. * HIGH RISK PATIENTS MAY BE PRESCRIBED A STRONGER BLOOD THINNER. THIS WILL BE PROVIDED AT DISCHARGE. * CALL IF INCREASED PAIN, REDNESS, DRAINAGE OR FEVER GREATER THAT 101. * WEAR RENUKA HOSE 20 HOURS PER DAY FOR 2 WEEKS. There is a large suction dressing covering your incision. This will help pull any excess drainage from the wound and allow your incision to heal properly. You may shower with this if you can keep the unit outside of the shower. If any bleeding or leakage is noted please call your doctor's office. This will remain on your incision for 7 days and then should be removed. This can be done yourself or by the home nursing staff if applicable. The entire unit is disposable once removed. Once removed, keep incision clean and dry. If redness or drainage is noted, please call your surgeon. IF INCISION IS LEAKING THROUGH DRESSING, CALL THE OFFICE . FOLLOW UP VISIT: If appointment is not already scheduled: Please call [facility] to make a follow-up appointment for 2 weeks after your surgery at . Stand-Alone Forms: My [facility] Skilled Items Patient informed of condition?: Yes DNR: No Discharge Level of Care: Skilled Communicable Disease: No Discharge Prognosis: Improving Lines: None Urinary Catheter: No Medications and DC Order Prescriptions: New aspirin 81 mg Tablet,Delayed Release (Dr/Ec) 81 mg PO BID Qty: 60 0RF acetaminophen [Tylenol Extra Strength] 500 mg Tablet 1,000 mg PO Q8 Qty: 60 0RF oxycodone 5 mg Tablet 5 - 10 mg PO .Q4h-6h MDD 6 PRN (Reason: pain) Qty: 30 0RF Rx Instructions: Ongoing therapy, Dr. Rogusky supervising Continued terazosin 2 mg capsule 2 mg PO BID Qty: 180 3RF collagen 1 dose PO QAM omega [id number] oil 1,200 (144-216) mg capsule 1 cap PO BID meclizine 12.5 mg tablet 12.5 mg PO TID PRN (Reason: dizziness) Qty: 90 0RF finasteride 5 mg tablet 5 mg PO PM omeprazole 20 mg capsule,delayed release(DR/EC) 20 mg PO DAILY PRN (Reason: Heartburn) atorvastatin 40 mg tablet 40 mg PO QAM allopurinol 100 mg tablet 100 mg PO QAM ropinirole 0.25 mg tablet 0.25 mg PO PM levothyroxine 50 mcg tablet 50 mcg PO QAM docusate sodium [Colace] 100 mg capsule 300 mg PO QAM triamterene-hydrochlorothiazid 75-50 mg tablet 0.25 tab PO QAM cholecalciferol (vitamin D3) 50 mcg (2,000 unit) capsule 50 mcg PO QAM Rx Instructions: take 2 capsules daily melatonin 5 mg Tablet 5 mg PO HS Held aspirin 81 mg tablet,delayed release (DR/EC) 81 mg PO QAM Qty: 30 Hold Instructions: Resume on 08/23/23. Discharge Orders: Discharge Order (Routine); Ordered 07/24/23 Ordered By: Juanpablo Herbert Admission Data Admit Date/Time: 07/22/23 15:24 Attending Provider: Chance Johns Admit Provider: Chance Johns Primary Care Provider: Maksim Vee Other Providers: Yasir Helms [place] ; Hilda Santana Other Interventions: Discharge Summary Assessment (RN) Last Done: 07/24/23 10:20
== END 2023-07-24 10:55 | DRG 470 ==
LOC: ASU 05:32 → PACUINP 05:32 → 3E 11:55